=== PATIENT | female | born 1975 | race Caucasian/White ===

== ENCOUNTER → 2018-03-02 07:17 | Outpatient (CLI) | payer BC, SELFPAY ==
--- NOTE | 2018-03-02 | DI.US.S_ITS ---
PROCEDURE: US ABDOMEN COMPLETE INDICATIONS: RIGHT UPPER QUADRANT PAIN TECHNIQUE: Real-time scanning was performed of the abdominal and retroperitoneal organs, with image documentation. COMPARISON: None. FINDINGS: Liver: Liver is normal in size and homogeneous in echotexture. Gallbladder: Gallbladder is clear with normal wall thickness. Biliary ducts: Intrahepatic bile ducts are non-dilated. Extrahepatic bile duct caliber measures 4.7 mm. Normal is 6-7 mm or less in diameter, or 10 mm or less post-cholecystectomy. Pancreas: Visualized portions of the pancreas are sonographically normal. Spleen: Spleen is normal in size and homogeneous in echotexture. Kidneys: Kidneys are normal in size and echotexture. Right kidney measures 11.8 cm long; left kidney measures 10.1 cm long. No hydronephrosis or nephrolithiasis. No solid masses. Aorta: Visualized aorta is normal in caliber at less than 3 cm. Iliacs: Proximal common iliac arteries are normal in caliber at less than 2.5 cm. IVC: Intrahepatic inferior vena cava is patent. Miscellaneous: No free abdominal fluid. IMPRESSION: Normal abdomen ultrasound Dictated by: Alejandro Otero M.D. on 03/02/2018 at 8:26 Approved by: Alejandro Otero M.D. on 03/02/2018 at 8:27
== END ==
PROVIDERS: Visit Provider Physician Assistant
DX: R10.11 Right upper quadrant pain (principal)
CPT/HCPCS: 76700

== ENCOUNTER → 2019-03-15 07:53 | Outpatient (CLI) | payer BC, SELFPAY ==
--- NOTE | 2019-03-15 | DI.RAD.S_ITS ---
PROCEDURE: FL BARIUM SWALLOW INDICATIONS: Dysphagia, pharyngeal phase COMPARISON: None. FINDINGS: Function: There is mildly delayed esophageal clearance otherwise normal esophageal peristalsis. No elicited gastroesophageal reflux. Morphology: Air-contrast images demonstrate normal mucosal morphology. Single contrast views show no esophageal strictures, extrinsic mass effects, or diverticula. Limited images of the stomach demonstrate normal appearance. IMPRESSION: Mild esophageal dysmotility. Dictated by: Barrie Branch M.D. on 03/15/2019 at 10:09 Approved by: Barrie Branch M.D. on 03/15/2019 at 10:12
== END ==
PROVIDERS: Visit Provider Internal Medicine
DX: R13.13 Dysphagia, pharyngeal phase (principal); K22.4 Dyskinesia of esophagus
CPT/HCPCS: 74220

== ENCOUNTER → 2020-07-24 08:13 | Outpatient (CLI) | payer BC, SELFPAY ==
--- NOTE | 2020-07-24 | DI.MG.S_ITS ---
BILATERAL DIGITAL SCREENING MAMMOGRAM 3D/2D WITH CAD: 07/24/2020 CLINICAL: Routine screening. Comparison is made to exams dated: 10/18/2019 mammogram, 01/03/2019 mammogram, and 12/27/2018 mammogram - [facility]. The tissue of both breasts is heterogeneously dense. This may lower the sensitivity of mammography. Current study was also evaluated with a Computer Aided Detection (CAD) system. There is an oval equal density focal asymmetry with an indistinct margin in the left breast at 1 o'clock posterior depth. No other significant masses, calcifications, or other findings are seen in either breast. IMPRESSION: INCOMPLETE: NEEDS ADDITIONAL IMAGING EVALUATION The oval equal density focal asymmetry in the left breast is indeterminate. Mediolateral and spot compression views as well as additional views with possible ultrasound are recommended. This exam was interpreted at Station ID: [id number]. NOTE: For mammograms, a report in lay terms will be sent to the patient. Approximately 15% of breast malignancies will not be visualized mammographically. In the management of a palpable breast mass, a negative mammogram must not discourage biopsy of a clinically suspicious lesion. Electronically Signed By: Manan kwon/barb:07/24/2020 09:18:38 letter sent: Additional Imaging Needed ACR BI-RADS Category 0: Incomplete 3340F
== END ==
PROVIDERS: PCP Internal Medicine; Referring Provider Internal Medicine; Visit Provider Internal Medicine
DX: Z12.31 Encounter for screening mammogram for malignant neoplasm of breast (principal)
CPT/HCPCS: 77063; 77067

== ENCOUNTER → 2020-08-28 09:19 | Outpatient (CLI) | payer BC, SELFPAY ==
--- NOTE | 2020-08-28 | DI.MG.S_ITS ---
UNILATERAL LEFT DIGITAL DIAGNOSTIC MAMMOGRAM 3D/2D WITH ADDITIONAL VIEWS: 08/28/2020 CLINICAL: Additional evaluation requested from prior study. Comparison is made to exams dated: 07/24/2020 mammogram - [facility], 10/18/2019 mammogram, 01/03/2019 mammogram, and 10/21/2016 mammogram - [facility]. The tissue of left breast is heterogeneously dense. This may lower the sensitivity of mammography. There is a focal asymmetry in the left breast at 1 o'clock posterior depth. This is not seen in additional views. No other significant masses or calcifications are seen in the breast. Biopsy clip in the left breast. IMPRESSION: INCOMPLETE: NEEDS ADDITIONAL IMAGING EVALUATION Focal asymmetry in the left breast is not confirmed on additional view. A second look with ultrasound is recommended and will immediately follow. This exam was interpreted at Station ID: [id number]. NOTE: For mammograms, a report in lay terms will be sent to the patient. Approximately 15% of breast malignancies will not be visualized mammographically. In the management of a palpable breast mass, a negative mammogram must not discourage biopsy of a clinically suspicious lesion. Electronically Signed By: Manuel Herman M.D. slc/:08/28/2020 10:13:19 ACR BI-RADS Category 0: Incomplete 3340F
--- NOTE | 2020-08-28 | DI.US.S_ITS ---
LIMITED ULTRASOUND OF LEFT BREAST AND AXILLA: 08/28/2020 CLINICAL: Patient returns today to evaluate a focal asymmetry in the left breast. Comparison is made to exams dated: 08/28/2020 mammogram, 07/24/2020 mammogram - [facility], 10/18/2019 mammogram, and 01/03/2019 mammogram - [facility]. Color flow and real-time ultrasound of the left breast 1 o'clock, and axilla regions were performed. Tran scale images of the real-time examination were reviewed. There is a benign 0.8 cm x 0.6 cm x 0.4 cm oval simple cyst in the left breast at 1 o'clock posterior depth 3 cm from the nipple. This oval simple cyst is anechoic with posterior acoustic enhancement. This correlates with mammography findings. Color flow imaging demonstrates that there is no vascularity present. No significant abnormalities were seen sonographically in the left axilla. IMPRESSION: BENIGN There is no sonographic evidence of malignancy. The 0.8 cm oval simple cyst in the left breast is benign. A 1 year screening mammogram is recommended. Exam findings were conveyed to the patient. This exam was interpreted at Station ID: [id number]. Electronically Signed By: Manuel Herman M.D. slc/:08/28/2020 11:10:03 letter sent: Normal Exam Ultrasound BI-RADS: 2 Benign
== END ==
PROVIDERS: PCP Internal Medicine; Referring Provider Internal Medicine; Visit Provider Internal Medicine
DX: R92.8 Other abnormal and inconclusive findings on diagnostic imaging of breast (principal); N60.01 Solitary cyst of right breast
CPT/HCPCS: 76642; 77065; G0279

== ENCOUNTER → 2020-12-18 19:18 | Outpatient (ROUT) | payer BC, SELFPAY ==
[2020-12-18 20:27] LABS: TSH w/ Reflex to FT4 0.96 uIU/mL (0.47-4.68)
== END ==
PROVIDERS: PCP Internal Medicine; Visit Provider Internal Medicine
DX: E03.9 Hypothyroidism, unspecified (principal)
CPT/HCPCS: 84443

== ENCOUNTER → 2021-07-30 08:27 | Outpatient (CLI) | payer BC, SELFPAY ==
--- NOTE | 2021-07-30 08:28 | DI.MG.S_ITS ---
BILATERAL DIGITAL SCREENING MAMMOGRAM 3D/2D WITH CAD: 07/30/2021 CLINICAL: Routine screening. Comparison is made to exams dated: 07/24/2020 mammogram - [facility], 12/27/2018 mammogram, 10/21/2016 mammogram, 10/18/2019 mammogram, 01/03/2019 mammogram, and 12/18/2018 mammogram - [facility]. The tissue of both breasts is heterogeneously dense. This may lower the sensitivity of mammography. Current study was also evaluated with a Computer Aided Detection (CAD) system. There is a biopsy clip in the left breast. No significant masses, calcifications, or other findings are seen in either breast. There has been no significant interval change. IMPRESSION: NEGATIVE There is no mammographic evidence of malignancy. A 1 year screening mammogram is recommended. This exam was interpreted at Station ID: [id number]. NOTE: For mammograms, a report in lay terms will be sent to the patient. Approximately 15% of breast malignancies will not be visualized mammographically. In the management of a palpable breast mass, a negative mammogram must not discourage biopsy of a clinically suspicious lesion. Electronically Signed By: Jadon hammer/barb:07/30/2021 08:59:19 letter sent: Normal Exam ACR BI-RADS Category 1: Negative 3341F
== END ==
PROVIDERS: PCP Internal Medicine; Referring Provider Internal Medicine; Visit Provider Internal Medicine
DX: Z12.31 Encounter for screening mammogram for malignant neoplasm of breast (principal)
CPT/HCPCS: 77063; 77067

== ENCOUNTER → 2022-04-22 09:42 | Outpatient (CLI) | payer BC, SELFPAY ==
--- NOTE | 2022-04-22 09:45 | DI.RAD.S_ITS ---
PROCEDURE: XR CALCANEOUS LT MIN 2V INDICATIONS: Pain in left heel TECHNIQUE: Two views of the calcaneus were acquired. COMPARISON: None. FINDINGS: Bones: No fractures or dislocations. No suspicious bony lesions. Plantar calcaneal spur. Soft tissues: No suspicious calcifications. Achilles tendon appears normal. IMPRESSION: Calcaneus without acute fracture or dislocation. Prominent plantar calcaneal enthesophyte. Dictated by: Jadon Billings M.D. on 04/22/2022 at 12:38 Approved by: Jadon Billings M.D. on 04/22/2022 at 12:39
== END ==
PROVIDERS: PCP Internal Medicine; Referring Provider Internal Medicine; Visit Provider Internal Medicine
DX: M79.672 Pain in left foot (principal); M77.32 Calcaneal spur, left foot
CPT/HCPCS: 73650